=== PATIENT | male | born 1955 | race Caucasian/White ===

== ENCOUNTER 2018-11-06 09:30 | Emergency (ER) | payer MEDICARE, MEDICAID ==
[~2018-11-06] VITALS: Ht 170.2 cm; Wt 80.5 kg
[~2018-11-06 09:30] MED LIST: ASPI-611 PO; LORA1TAB PO; LOSA50TA3 PO; OXYC-150 PO
[2018-11-06 09:32] VITALS: BP 136/85
[2018-11-06] MEDS ORDERED: acetaminophen 325mg tablet PO ONE (10:00)
[2018-11-06] MEDS ORDERED: BUPIVAcaine/PF 2.5 mg/ml (0.25%) 30ml vial IJ ONE (10:00)
[2018-11-06] MEDS ORDERED: HYDROcodone/acetaminophen 5mg/325mg tablet PO ONE (10:00)
[2018-11-06] MEDS ORDERED: LIDOcaine 5% patch TP ONE (10:00)
[2018-11-06] MEDS ORDERED: BUPIVAcaine/PF 2.5mg/ml (0.25%) 10ml vial IJ ONE (10:05)
--- NOTE | 2018-11-06 10:20 | NUR ---
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
[2018-11-06] MEDS ORDERED: LIDO700A32 TOP (10:23)
== END 2018-11-06 10:35 | disposition home or self-care (01) ==
LOC: ER 09:31
DX: M25.551 Pain in right hip (principal); I10 Essential (primary) hypertension; G89.29 Other chronic pain; Z79.82 Long term (current) use of aspirin
CPT/HCPCS: 99284; J3490

== ENCOUNTER 2018-12-27 09:58 | Emergency (ER) | payer MEDICARE, MEDICAID ==
[~2018-12-27] VITALS: Ht 170.2 cm; Wt 78.0 kg
[~2018-12-27 09:58] MED LIST changes: +LIDO700A32 TOP
[2018-12-27] MEDS ORDERED: FLO0.4C PO (10:27)
[2018-12-27] MEDS ORDERED: ketorolac trometh. 30mg/ml inj. IV ONE (11:00)
[2018-12-27] MEDS ORDERED: normal saline 1000ML IV soln IVB ONE (11:00)
[2018-12-27 11:51] LABS: BASOPHILS # (AUTO) 0.1 X10'3 (0-0.2); BASOPHILS % (AUTO) 1.3 % (0-1); EOSINOPHILS # (AUTO) 0.2 X10'3 (0-0.9); EOSINOPHILS % (AUTO) 2.4 % (0-6); HEMATOCRIT 39.6 % (42.0-52.0); HEMOGLOBIN 13.5 g/dl (14.0-17.9); LYMPHOCYTES # (AUTO) 1.8 X10'3 (1.1-4.8); LYMPHOCYTES % (AUTO) 22.5 % (21-51); MEAN CORPUSCULAR HEMOGLOBIN 31.9 PG (27.0-31.0); MEAN CORPUSCULAR HGB CONC 34.2 g/dL (33.0-36.5); MEAN CORPUSCULAR VOLUME 93.5 FL (78-98); MEAN PLATELET VOLUME 7.3 FL (7.4-10.4); MONOCYTES # (AUTO) 0.6 X10'3 (0-0.9); MONOCYTES % (AUTO) 7.1 % (2-12); NEUTROPHILS # (AUTO) 5.4 X10'3 (1.8-7.7); NEUTROPHILS % (AUTO) 66.7 % (42-75); PLATELET COUNT 494 X10'3 (140-440); RED BLOOD COUNT 4.24 X10'6 (4.70-6.10); WHITE BLOOD COUNT 8.1 X10'3 (4.5-11.0)
[2018-12-27 12:05] LABS: ALANINE AMINOTRANSFERASE 43 U/L (12-78); ALBUMIN 3.2 G/DL (3.4-5.0); ALBUMIN/GLOBULIN RATIO 0.8 (1.1-1.5); ALKALINE PHOSPHATASE 134 IU/L (46-116); ANION GAP 5 (8-16); ASPARTATE AMINO TRANSFERASE 30 U/L (10-37); BILIRUBIN,TOTAL 0.2 MG/DL (0.1-1.0); BLOOD UREA NITROGEN 13 MG/DL (7-18); BUN/CREATININE RATIO 13.4 (5.4-32.0); CALCIUM 9.1 MG/DL (8.5-10.1); CHLORIDE 108 MMOL/L (99-107); CREATININE 0.97 MG/DL (0.60-1.10); GLUCOSE 89 MG/DL (70-104); POTASSIUM 4.3 MMOL/L (3.5-5.1); SODIUM 141 MMOL/L (135-145); TOTAL CARBON DIOXIDE 28.2 MMOL/L (24-32); TOTAL PROTEIN 7.3 G/DL (6.4-8.2); eGFR 78 ML/MIN
[2018-12-27] MEDS ORDERED: ringers solution, lacted 1,000 ML IV ONE (12:27)
[2018-12-27] MEDS ORDERED: ringers solution, lacted 1,000 ML IV SCH (12:31)
[2018-12-27] MEDS ORDERED: ondansetron/PF 4mg/2ml inj IV PRN (12:35)
--- NOTE | 2018-12-27 12:49 | NUR ---
REPORT GIVEN TO TARI RAY IN RECOVERY. PT TO BE TAKEN TO HAVE PATCH PLACED. PT AWARE.
--- NOTE | 2018-12-27 12:59 | NUR ---
PT TAKEN TO RECOVERY IN GOWN AND IV RUNNING WITH NS. BELONGINGS WITH PT.
[2018-12-27] MEDS ORDERED: MIDAZolam 5mg/5ml vial ONE (13:22)
[2018-12-27] MEDS ORDERED: fentaNYL/PF 50MCG/1 ML 2ML syringe ONE (13:22)
[2018-12-27] MEDS ORDERED: acetaminophen 325mg tablet PO ONE (14:05)
[2018-12-27 14:33] VITALS: BP 164/99
== END 2018-12-27 14:35 | disposition home or self-care (01) ==
LOC: ER 09:59
DX: G97.1 Other reaction to spinal and lumbar puncture (principal); I10 Essential (primary) hypertension; G89.29 Other chronic pain; Z98.890 Other specified postprocedural states; Z79.899 Other long term (current) drug therapy; Z79.82 Long term (current) use of aspirin
CPT/HCPCS: 36415; 80053; 82948; 85025; 96374; 99283; J1885; J2250; J3010; J7030; A4649; J7120

== ENCOUNTER 2024-09-10 05:38 | Inpatient (IN) | payer MEDICARE, MEDICAID ==
[2024-09-01 12:12] LABS: BASOPHILS # (AUTO) 0.1 X10'3 (0-0.2); BASOPHILS % (AUTO) 1.8 % (0-1); EOSINOPHILS # (AUTO) 0.1 X10'3 (0-0.9); EOSINOPHILS % (AUTO) 0.7 % (0-6); LYMPHOCYTES # (AUTO) 1.5 X10'3 (1.1-4.8); LYMPHOCYTES % (AUTO) 20.1 % (21-51); MEAN CORPUSCULAR HEMOGLOBIN 31.1 PG (27.0-31.0); MEAN CORPUSCULAR HGB CONC 33.7 g/dL (33.0-36.5); MEAN CORPUSCULAR VOLUME 92.3 FL (78-98); MEAN PLATELET VOLUME 7.2 FL (7.4-10.4); MONOCYTES # (AUTO) 0.4 X10'3 (0-0.9); MONOCYTES % (AUTO) 5.8 % (2-12); NEUTROPHILS # (AUTO) 5.4 X10'3 (1.8-7.7); NEUTROPHILS % (AUTO) 71.6 % (42-75); PRE OP HEMATOCRIT 39.1 % (42.0-52.0); PRE OP HEMOGLOBIN 13.2 g/dL (14.0-17.9); PRE OP PLATELET COUNT 459 X10'3 (140-440); PRE OP WHITE BLOOD COUNT 7.6 10'3 (4.8-10.8); RED BLOOD COUNT 4.24 X10'6 (4.70-6.10); RED CELL DISTRIBUTION WIDTH 13.8 % (11.5-14.5)
[2024-09-01 12:25] LABS: ALBUMIN 3.5 G/DL (3.4-5.0); ALBUMIN/GLOBULIN RATIO 0.9 (1.1-1.5); ALKALINE PHOSPHATASE 156 IU/L (46-116); BLOOD UREA NITROGEN 21 MG/DL (7-18); BUN/CREATININE RATIO 23.9 (10.0-20.0); CHLORIDE 107 MMOL/L (99-107); CREATININE 0.88 MG/DL (0.60-1.10); PRE OP ALT 29 U/L (30-65); PRE OP ANION GAP 6 (8-16); PRE OP AST 28 U/L (10-37); PRE OP BILIRUB, TOTAL 0.3 MG/DL (0.0-1.0); PRE OP GLUCOSE 97 MG/DL (70-104); PRE OP POTASSIUM 4.1 MMOL/L (3.4-5.1); PRE OP SODIUM 139 MMOL/L (135-145); TOTAL CARBON DIOXIDE 26.4 MMOL/L (24-32); TOTAL PROTEIN 7.6 G/DL (6.4-8.2); eGFR 86 ML/MIN
[~2024-09-10] VITALS: Ht 170.2 cm; Wt 82.0 kg
[2024-09-10] VITALS (16 sets, daily range): BP systolic 111–150; BP diastolic 57–90; PULSE 60–87; RESP 12–33; TEMP 97–98.7; O2SAT 96–100
[2024-09-10] MEDS: ringers solution, lacted 1,000 ML IV SCH ×2 (05:30→08:50)
[~2024-09-10 05:38] MED LIST changes: -ASPI-611 PO; +ATOR20TA PO; +IBUP-1986 PO; -LIDO700A32 TOP; -LORA1TAB PO; -LOSA50TA3 PO; -OXYC-150 PO; +PANT20TA18 PO; +TAMS-55 PO
[2024-09-10] MEDS: famotidine 20mg tablet PO ONE (06:35)
[2024-09-10] MEDS: tranexamic acid 1gm/0.7% sal. 100 ML IV ONE (06:35)
[2024-09-10] MEDS: VANCOMYCIN/H2O 1.5g/300mL PB 300 ML IV ONE (06:35)
[2024-09-10] MEDS: ceFAZolin 2gm in dextrose, iso 50 ML IV ONE (06:35)
[2024-09-10] MEDS ORDERED: vancomycin 1,000mg inj ONE (06:43)
[2024-09-10] MEDS: ROPIVAcaine inj 200 MG, epiNEPHrine inj 0.6 MG, morphine 10mg/ml inj. 5 MG in normal sa... IU ONE (06:45)
[2024-09-10] MEDS ORDERED: ROPIVAcaine 0.5% (5mg/ml) 30ml vial ONE (07:34)
[2024-09-10] MEDS ORDERED: cloNIDine hcl/PF 100mcg/ml inj ONE (07:36)
[2024-09-10] MEDS ORDERED: fentaNYL/PF 50MCG/1 ML 2ML syringe ONE ×2 (07:39→08:56)
[2024-09-10] MEDS ORDERED: midazolam 1 mg/ML 2ml injection ONE (07:39)
[2024-09-10] MEDS ORDERED: BUPIVAcaine 2.5mg/ml inj 50ml vial (contains preservative) ONE (08:35)
[2024-09-10] MEDS ORDERED: meperidine/PF 25mg/ml syringe IV PRN (08:50)
[2024-09-10] MEDS ORDERED: ondansetron/PF 4mg/2ml inj IV PRN (08:50)
[2024-09-10] MEDS ORDERED: HYDROmorphone/PF 0.2 MG/ML SYRINGE IV PRN (08:50)
[2024-09-10] MEDS ORDERED: ROPIVAcaine 0.2% (10 MG/5 ML) BOLUS INJECTION ADDCANAL PRN (08:50)
[2024-09-10] MEDS ORDERED: labetalol 20mg/4ml (5mg/ml) syringe IV PRN (08:50)
[2024-09-10] MEDS ORDERED: morphine 2 MG/ML inj. syringe IV PRN (08:50)
[2024-09-10] MEDS ORDERED: rocuronium 10mg/ml inj IV ONE (08:54)
[2024-09-10] MEDS ORDERED: dexamethasone sod phosphate 4mg/ml inj. ONE (08:55)
[2024-09-10] MEDS ORDERED: labetalol 20mg/4ml (5mg/ml) syringe IV ONE (08:55)
[2024-09-10] MEDS ORDERED: propofol inj 20 ML IV ONE (08:55)
[2024-09-10] MEDS: potassium Cl 20mEq in NS 1,000 ML IV SCH (10:50)
[2024-09-10] MEDS ORDERED: naloxone 0.4 mg/ml inj IV PRN ×2 (10:50→11:40)
[2024-09-10] MEDS ORDERED: diphenhydrAMINE 25mg capsule PO PRN ×2 (10:50)
[2024-09-10] MEDS ORDERED: bisacodyl 10mg suppository rectal RC PRN (10:50)
[2024-09-10] MEDS ORDERED: magnesium hydroxide 30ml (MOM) UD suspension PO PRN (10:50)
[2024-09-10] MEDS ORDERED: HYDROmorphone inj. 0.5 MG/0.5 ML DISP.SYRIN IV PRN (10:50)
[2024-09-10] MEDS ORDERED: acetaminophen 1,000mg/100ml IV 100 ML IV ONE (10:56)
[2024-09-10] MEDS: HYDROmorphone/PF 0.2 MG/ML SYRINGE IV PRN (11:24)
[2024-09-10] MEDS: ROPIVAcaine 0.2%/PF PUMP/bolus 545 ML ADDCANAL SCH (11:25)
[2024-09-10] MEDS: morphine 4 MG/ML inj SYRINge IV PRN (11:35)
[2024-09-10] MEDS: HYDROmorph/NS 0.2 mg/ml PCA 100 ML IV SCH (13:00)
[2024-09-10] MEDS: gabapentin 300mg capsule PO SCH (15:05)
[2024-09-10] MEDS: ceFAZolin/D5W- 1GM premix 50 ML IV SCH (15:05)
[2024-09-10] MEDS: tranexamic acid inj. 800 MG in normal saline 100ml IV soln 92 ML IV ONE (15:06)
[2024-09-10] MEDS: acetaminophen 325mg tablet PO SCH (15:08)
[2024-09-10] MEDS: sennosides 8.6mg tablet PO SCH (20:13)
[2024-09-10] MEDS: vancomycin/NS 1 GM ADD-VANTAGE 250 ML IV SCH (20:24)
[2024-09-10] MEDS ORDERED: OLME5TAB29 PO (21:18)
[2024-09-11] VITALS (7 sets, daily range): BP systolic 110–164; BP diastolic 59–86; PULSE 67–87; RESP 13–18; TEMP 97.1–98.3; O2SAT 96–99
[2024-09-11] MEDS: enoxaparin 40mg/0.4ml syringe SQ SCH (08:53)
[2024-09-11] MEDS: PCA WASTE DOCUMENTATION 1 MG ML MC PRN (09:48)
[2024-09-11] MEDS: oxyCODONE IR 5mg (immed. release) tablet PO PRN (10:02)
[2024-09-11] MEDS: ondansetron/PF 4mg/2ml inj IV PRN (10:04)
[2024-09-11] MEDS: HYDROmorphone 1 mg/ml syringe IV PRN (12:15)
[2024-09-11] MEDS ORDERED: LidoCAINE 2% Topical Jelly 11mL syringe (UROJET) TOP ONE (19:10)
[2024-09-11] MEDS: losartan 50mg tablet PO SCH (21:18)
[2024-09-11] MEDS: celeCOXIB 100mg capsule PO SCH (21:18)
[2024-09-12] VITALS (10 sets, daily range): BP systolic 153–210; BP diastolic 74–108; PULSE 57–75; RESP 14–20; TEMP 97.6–100.3; O2SAT 96–100
[2024-09-12] MEDS: atorvastatin 20mg tablet PO SCH (07:26)
[2024-09-12] MEDS: oxyCODONE IR 5mg (immed. release) tablet PO PRN (07:26)
[2024-09-12] MEDS: tamsulosin 0.4mg capsule PO SCH (07:26)
[2024-09-12] MEDS: pantoprazole 40mg Tablet.DR PO SCH (07:27)
[2024-09-12] MEDS: HYDROmorphone inj. 0.5 MG/0.5 ML DISP.SYRIN IV PRN ×2 (09:46→20:09)
[2024-09-12] MEDS: proCHLORperazine 10 MG/2 ml inj IV ONE (11:29)
[2024-09-12] MEDS: hydrALAZINE 20mg/ml inj. IV PRN (12:19)
[2024-09-12] MEDS: HYDROmorphone 1 mg/ml syringe IV ONE (14:20)
[2024-09-12] MEDS: diphenhydrAMINE 50 mg/ml inj IV ONE (16:31)
[2024-09-12] MEDS: haloperidol lactate 5mg/ml inj IM ONE (16:41)
[2024-09-12] MEDS: acetaminophen 325mg tablet PO PRN (17:51)
[2024-09-12] MEDS ORDERED: cloNIDine 0.1 mg tablet PO PRN (19:10)
[2024-09-13 05:36] LABS: BASOPHILS % (AUTO) 0.3 % (0-1); EOSINOPHILS % (AUTO) 0 % (0-6); HEMATOCRIT 39.6 % (42.0-52.0); HEMOGLOBIN 13.4 g/dl (14.0-17.9); LYMPHOCYTES # (AUTO) 1.5 X10'3 (1.1-4.8); LYMPHOCYTES % (AUTO) 11.2 % (21-51); MEAN CORPUSCULAR HEMOGLOBIN 30.6 PG (27.0-31.0); MEAN CORPUSCULAR HGB CONC 33.8 g/dL (33.0-36.5); MEAN CORPUSCULAR VOLUME 90.6 FL (78-98); MEAN PLATELET VOLUME 7.6 FL (7.4-10.4); MONOCYTES # (AUTO) 1.1 X10'3 (0-0.9); MONOCYTES % (AUTO) 8.4 % (2-12); NEUTROPHILS # (AUTO) 10.9 X10'3 (1.8-7.7); NEUTROPHILS % (AUTO) 80.1 % (42-75); PLATELET COUNT 515 X10'3 (140-440); RED BLOOD COUNT 4.37 X10'6 (4.70-6.10); RED CELL DISTRIBUTION WIDTH 13.8 % (11.5-14.5); WHITE BLOOD COUNT 13.6 X10'3 (4.5-11.0)
[2024-09-13 05:45] LABS: ALANINE AMINOTRANSFERASE 65 U/L (12-78); ALBUMIN 3.1 G/DL (3.4-5.0); ALBUMIN/GLOBULIN RATIO 0.6 (1.1-1.5); ALKALINE PHOSPHATASE 202 IU/L (46-116); ANION GAP 10 (8-16); ASPARTATE AMINO TRANSFERASE 34 U/L (10-37); BILIRUBIN,TOTAL 0.5 MG/DL (0.1-1.0); BLOOD UREA NITROGEN 12 MG/DL (7-18); BUN/CREATININE RATIO 13.2 (10.0-20.0); CALCIUM 9.4 MG/DL (8.5-10.1); CHLORIDE 98 MMOL/L (99-107); CREATININE 0.91 MG/DL (0.60-1.10); GLUCOSE 122 MG/DL (70-104); POTASSIUM 3.5 MMOL/L (3.5-5.1); SODIUM 135 MMOL/L (135-145); TOTAL CARBON DIOXIDE 26.8 MMOL/L (24-32); TOTAL PROTEIN 8.1 G/DL (6.4-8.2); eCRCL 71 ML/MIN; eGFR 82 ML/MIN
[2024-09-13 06:00] VITALS: BP 189/95; PULSE 67; RESP 18; TEMP 98; O2SAT 99
[2024-09-13 10:00] VITALS: BP 169/89; PULSE 100; RESP 16; TEMP 98.4; O2SAT 94
[2024-09-13] MEDS ORDERED: ketorolac trometh 15mg/ml vial 15 MG/ML ML IV ONE (10:40)
[2024-09-13] MEDS ORDERED: ONDA-243 PO (10:53)
[2024-09-13] MEDS ORDERED: CELE-127 PO (10:53)
[2024-09-13] MEDS: HYDROmorphone 1 mg/ml syringe IV ONE (11:14)
[2024-09-13] MEDS: ketorolac trometh 15mg/ml vial 15 MG/ML ML IV ONE (11:17)
[2024-09-13 13:00] VITALS: RESP 16; O2SAT 94
== END 2024-09-13 14:40 | disposition home health service (06) | DRG 470 ==
LOC: PAS IN 05:38 → ORTHO 4S 12:23
PROVIDERS: ADMIT Orthopaedic Surgery; ATTEND Orthopaedic Surgery
PROC: 0JH80VZ Insertion of Infusion Pump into Abdomen Subcutaneous Tissue and Fascia, Open Approach (ICD-10-PCS; 2024-09-10)
PROC: 3E013BZ Introduction of Anesthetic Agent into Subcutaneous Tissue, Percutaneous Approach (ICD-10-PCS; 2024-09-10)
PROC: 0SRC0J9 Replacement of Right Knee Joint with Synthetic Substitute, Cemented, Open Approach (ICD-10-PCS; principal; 2024-09-10 07:34)
DX: M17.11 Unilateral primary osteoarthritis, right knee (principal); I10 Essential (primary) hypertension; M21.161 Varus deformity, not elsewhere classified, right knee; E78.5 Hyperlipidemia, unspecified; Z90.81 Acquired absence of spleen; Z90.49 Acquired absence of other specified parts of digestive tract
CPT/HCPCS: 36415; 73560; 80053; 82948; 85025; 87081; 97110; 97116; 97162; A4215; A6253; A6258; A6446; A6449; A6454; A7000; C1713; C1776; C9250; G0378; J0131; J0360; J0690; J0735; J0780; J1100; J1171; J1200; J1630; J1650; J1885; J2250; J2270; J2405; J2704; J2795; J3010; J3370; J3372; J3480; J3490; J7040; J7120